=== PATIENT | female | born 1945 | race Caucasian/White ===

== ENCOUNTER 2020-02-29 13:56 | Outpatient (CLI) | payer OTHER ==
[~2020-02-29 13:56] MED LIST: NORVASC5 MG; TENORMIN50 MG
== END 2020-02-29 14:01 | disposition home or self-care (01) ==
LOC: NUCLEAR 13:56
DX: M85.89 Other specified disorders of bone density and structure, multiple sites (principal)

== ENCOUNTER 2021-03-20 13:06 | Outpatient (CLI) | payer OTHER | END 2021-03-20 13:17 | disposition home or self-care (01) | LOC: SONOGRAMA 13:06 | PROVIDERS: ATTEND Specialist | DX: M16.0 Bilateral primary osteoarthritis of hip (principal); E04.1 Nontoxic single thyroid nodule ==

== ENCOUNTER → 2021-03-23 10:09 | Outpatient (CLI) | payer OTHER | END | disposition home or self-care (01) | LOC: NUCLEAR 10:00 | PROVIDERS: ATTEND Specialist | DX: I82.409 Acute embolism and thrombosis of unspecified deep veins of unspecified lower extremity (principal) ==

== ENCOUNTER 2021-05-02 08:12 | Emergency (ER) | payer OTHER ==
[~2021-05-02] VITALS: Ht 154.9 cm; Wt 52.2 kg
[2021-05-02] MEDS ORDERED: AMLODIPINE BESYL5 MG PO (08:29)
[2021-05-02] MEDS ORDERED: LOSARTAN POTAS100 MG PO (08:30)
[2021-05-02] MEDS ORDERED: GLUMETZA500 MG (08:30)
[2021-05-02] MEDS ORDERED: TOPROL XL100 M1 (08:30)
[2021-05-02] MEDS ORDERED: SULINDAC150 MG PO (08:31)
[2021-05-02] MEDS ORDERED: EZETIMIBE10 MG PO (08:32)
[2021-05-02] MEDS ORDERED: TRELEGY ELLIPT1 EAC1 IH (08:33)
[2021-05-02] MEDS ORDERED: FENOFIBRATE50 MG (08:33)
[2021-05-02] MEDS ORDERED: PERCOCET 5-3251 EACH PO (10:37)
== END 2021-05-02 12:06 | disposition home or self-care (01) ==
LOC: ER 08:12
DX: S42.254A Nondisplaced fracture of greater tuberosity of right humerus, initial encounter for closed fracture (principal); W19.XXXA Unspecified fall, initial encounter; Y93.9 Activity, unspecified; Y92.9 Unspecified place or not applicable; E11.9 Type 2 diabetes mellitus without complications; I10 Essential (primary) hypertension; Z88.0 Allergy status to penicillin; Z88.8 Allergy status to other drugs, medicaments and biological substances

== ENCOUNTER 2021-06-24 16:38 | Emergency (ER) | payer OTHER ==
[~2021-06-24] VITALS: Ht 154.9 cm; Wt 52.6 kg
[~2021-06-24 16:38] MED LIST changes: +AMLODIPINE BESYL5 MG PO; +EZETIMIBE10 MG PO; +FENOFIBRATE50 MG; +GLUMETZA500 MG; +LOSARTAN POTAS100 MG PO; +PERCOCET 5-3251 EACH PO; +SULINDAC150 MG PO; +TOPROL XL100 M1; +TRELEGY ELLIPT1 EAC1 IH
[2021-06-24] MEDS ORDERED: BONIVA150 MG PO (18:07)
[2021-06-25] MEDS ORDERED: METRONIDAZOLE500 MG PO (00:37)
[2021-06-25] MEDS ORDERED: PEPCID AC20 MG PO (00:37)
[2021-06-25] MEDS ORDERED: LEVSIN0.125 MG PO (00:37)
[2021-06-25] MEDS ORDERED: INTESTINEX680 M1 PO (00:37)
[2021-06-25] MEDS ORDERED: CIPROFLOXACIN500 MG PO (00:37)
== END 2021-06-25 00:49 | disposition home or self-care (01) ==
LOC: ER 16:38
DX: K52.9 Noninfective gastroenteritis and colitis, unspecified (principal); Z88.0 Allergy status to penicillin; Z88.4 Allergy status to anesthetic agent; E11.9 Type 2 diabetes mellitus without complications; Z79.84 Long term (current) use of oral hypoglycemic drugs; I11.9 Hypertensive heart disease without heart failure

== ENCOUNTER 2021-06-29 07:11 | Outpatient (CLI) | payer OTHER ==
[~2021-06-29 07:11] MED LIST changes: +BONIVA150 MG PO; +CIPROFLOXACIN500 MG PO; +INTESTINEX680 M1 PO; +LEVSIN0.125 MG PO; +METRONIDAZOLE500 MG PO; +PEPCID AC20 MG PO
== END 2021-06-29 07:50 | disposition home or self-care (01) ==
LOC: SONOGRAMA 07:11
PROVIDERS: ATTEND General Practice
DX: R10.11 Right upper quadrant pain (principal)

== ENCOUNTER 2021-12-07 15:29 | Outpatient (CLI) | payer OTHER | END 2021-12-07 15:33 | disposition home or self-care (01) | LOC: LAB 15:29 | PROVIDERS: ATTEND Specialist | DX: D64.9 Anemia, unspecified (principal); J45.998 Other asthma; J15.7 Pneumonia due to Mycoplasma pneumoniae; U07.1 COVID-19; J10.89 Influenza due to other identified influenza virus with other manifestations ==